=== PATIENT | male | born 1965 | race Caucasian/White ===

== ENCOUNTER 2018-10-30 19:06 | Emergency (ER) | payer MEDICARE, OTHER ==
[~2018-10-30] VITALS: Ht 190.5 cm; Wt 140.6 kg
[~2018-10-30 19:06] MED LIST: ACET325 PO; CYCL10 PO; HYDMOR2 PO; METPRE4DP PO; OXYACE5T PO; OXYC5 PO; SULTRIDS PO; TRAM50 PO
[2018-10-30] MEDS ORDERED: Hair, Skin & N1 EACH (19:36)
== END 2018-10-30 20:14 | disposition home or self-care (01) ==
LOC: ER 19:06
DX: S61.011A Laceration without foreign body of right thumb without damage to nail, initial encounter (principal); Z23 Encounter for immunization; F17.200 Nicotine dependence, unspecified, uncomplicated; W25.XXXA Contact with sharp glass, initial encounter; Z88.5 Allergy status to narcotic agent; Z88.8 Allergy status to other drugs, medicaments and biological substances
CPT/HCPCS: 12001; 90471; 90714; 99282-25

== ENCOUNTER 2020-09-02 12:35 | Emergency (ER) | payer MEDICARE ==
[~2020-09-02] VITALS: Ht 190.5 cm; Wt 147.4 kg
[~2020-09-02 12:35] MED LIST changes: +Hair, Skin & N1 EACH
[2020-09-02] MEDS ORDERED: OXYCODONE-ACET1 EAC3 PO (12:48)
[2020-09-02] MEDS ORDERED: ESCI10 PO (12:48)
[2020-09-02] MEDS ORDERED: ARIPIPRAZOLE2 M1 PO (12:48)
[2020-09-02] MEDS ORDERED: PERCOCET 10-321 EAC4 PO (14:33)
== END 2020-09-02 14:47 | disposition home or self-care (01) ==
LOC: ER 12:35
DX: S81.012A Laceration without foreign body, left knee, initial encounter (principal); S50.02XA Contusion of left elbow, initial encounter; M54.16 Radiculopathy, lumbar region; F17.200 Nicotine dependence, unspecified, uncomplicated; Z88.5 Allergy status to narcotic agent; Z88.8 Allergy status to other drugs, medicaments and biological substances; Z79.899 Other long term (current) drug therapy; W18.2XXA Fall in (into) shower or empty bathtub, initial encounter
CPT/HCPCS: 73080; 73564; 96372; 99283-25; J1885

== ENCOUNTER 2021-05-11 12:23 | Inpatient (IN) | payer MEDICARE ==
[~2021-05-11] VITALS: Ht 190.5 cm; Wt 161.2 kg
[~2021-05-11 12:23] MED LIST changes: +ARIPIPRAZOLE2 M1 PO; +ESCI10 PO; -Hair, Skin & N1 EACH; +OXYCODONE-ACET1 EAC3 PO; +PERCOCET 10-321 EAC4 PO
[2021-05-11] MEDS ORDERED: ABILIFY MYCITE5 M2 PO (13:30)
[2021-05-11] MEDS ORDERED: ESCI20 PO (13:31)
[2021-05-11 13:46] LABS: BASOPHILS ABSOLUTE AUTO 0.04 K/mm3 (0.00-0.23); BASOPHILS PERCENT AUTO 1 % (0-2); EOSINOPHILS ABSOLUTE AUTO 0.07 K/mm3 (0.00-0.68); EOSINOPHILS PERCENT AUTO 1 % (0-6); Hematocrit 47.3 % (37.0-53.0); Hemoglobin 15.2 g/dL (13.5-17.5); IMMATURE GRAN ABSOLUTE AUTO 0.02 K/mm3 (0.00-0.10); IMMATURE GRAN PERCENT AUTO 0 % (0-1); LYMPHOCYTES ABSOLUTE AUTO 1.68 K/mm3 (0.84-5.20); LYMPHOCYTES PERCENT AUTO 21 % (21-46); MONOCYTES ABSOLUTE AUTO 0.86 K/mm3 (0.16-1.47); MONOCYTES PERCENT AUTO 11 % (4-13); Mean Corpuscular HGB 31.7 pg (26.0-34.0); Mean Corpuscular HGB Conc 32.1 g/dL (31.5-36.5); Mean Corpuscular Volume 99 fL (80-100); Mean Platelet Volume 9.4 fL (9.1-12.4); NEUTROPHILS ABSOLUTE AUTO 5.47 K/mm3 (1.96-9.15); NEUTROPHILS PERCENT AUTO 67 % (41-73); Platelet Count 256 K/mm3 (150-400); RDW Coefficient Variation 12.9 % (11.7-14.2); RDW Standard Deviation 47.4 fL (35.1-46.3); White Blood Cell Count 8.14 K/mm3 (4.00-11.30)
[2021-05-11 14:10] LABS: Alanine Aminotransfer (ALT/SGP 23 U/L (12-78); Albumin, Blood 3.2 g/dL (3.4-5.0); Alk Phos 76 U/L (50-136); Anion Gap 2 mmol/L (6-16); Aspartate Aminotrans (AST/SGOT 20 U/L (12-37); Bilirubin, Total 0.6 mg/dL (0.1-1.0); Blood Urea Nitrogen 8 mg/dL (8-24); Bun/Creatinine Ratio 9.7 (12.0-20.0); CO2, Blood 35 mmol/L (21-32); Calcium, Blood 8.4 mg/dL (8.5-10.1); Chloride, Blood 98 mmol/L (98-108); Creatinine, Blood 0.83 mg/dL (0.60-1.20); Globulin, Blood 3.1 g/dL (2.2-4.0); Glomerular Filtration Rate >60 (60-); Glucose, Blood 101 mg/dL (70-99); Magnesium, Blood 2.3 mg/dL (1.6-2.4); Potassium, Blood 4.5 mmol/L (3.5-5.5); Sodium, Blood 135 mmol/L (136-145); Total Protein, Blood 6.3 g/dL (6.4-8.2); Troponin I <0.015 ng/mL (0.000-0.040)
[2021-05-11] MEDS ORDERED: Hair, Skin & N1 EACH PO (17:27)
[2021-05-11 21:54] LABS: CPK Creatine Kinase 50 U/L (39-308); Troponin I <0.015 ng/mL (0.000-0.040)
[2021-05-11 23:30] LABS: Source, Urine Clean Catch
[2021-05-11 23:31] LABS: Bilirubin, Urine Neg (Neg); Blood, Urine Neg (Neg); Glucose Qualitative, Urine Neg (Neg); Ketones, Urine Neg (Neg); Leukocyte Esterase, Urine Neg (Neg); Nitrite, Urine Neg (Neg); Protein, Urine Neg (Neg); Urobilinogen, Urine NORM (Normal)
[2021-05-11 23:34] LABS: Appearance, Urine Clear (Clear); Color, Urine Yellow (P-Yellow)
--- NOTE | 2021-05-12 05:17 | NUR ---
shift summary pt rested well through night. alert and oriented, able to make needs known. cooperative with plan of care. sats >90% on 5lnc. pt doesnt usually wear o2 at home, but has required 5lnc. covid negative. tele aflutter, rate ranging from 80's110's. does tend to jump up to 130's with activity. cardizem gtt running at 5mg/hr. denies chest pain or palpitations. trops negative. voids to urinal - ua sent, clear results, 700ml uop. no bm. stand by assist to bedside commode. no wounds or skin issues other than some noted swelling in ble. no c/o pain. vss. call light within reach, bed in lowest position. will continue to monitor.
[2021-05-12 05:31] LABS: BASOPHILS ABSOLUTE AUTO 0.03 K/mm3 (0.00-0.23); BASOPHILS PERCENT AUTO 1 % (0-2); EOSINOPHILS PERCENT AUTO 2 % (0-6); Hematocrit 48.8 % (37.0-53.0); Hemoglobin 15.7 g/dL (13.5-17.5); IMMATURE GRAN ABSOLUTE AUTO 0.02 K/mm3 (0.00-0.10); IMMATURE GRAN PERCENT AUTO 0 % (0-1); LYMPHOCYTES ABSOLUTE AUTO 1.36 K/mm3 (0.84-5.20); LYMPHOCYTES PERCENT AUTO 22 % (21-46); MONOCYTES ABSOLUTE AUTO 0.69 K/mm3 (0.16-1.47); MONOCYTES PERCENT AUTO 11 % (4-13); Mean Corpuscular HGB 32.1 pg (26.0-34.0); Mean Corpuscular HGB Conc 32.2 g/dL (31.5-36.5); Mean Corpuscular Volume 100 fL (80-100); Mean Platelet Volume 9.3 fL (9.1-12.4); NEUTROPHILS ABSOLUTE AUTO 4.02 K/mm3 (1.96-9.15); NEUTROPHILS PERCENT AUTO 65 % (41-73); Platelet Count 229 K/mm3 (150-400); RDW Standard Deviation 48.3 fL (35.1-46.3); Red Blood Cell Count 4.89 M/mm3 (4.30-5.90); White Blood Cell Count 6.22 K/mm3 (4.00-11.30)
[2021-05-12 06:00] LABS: Alanine Aminotransfer (ALT/SGP 24 U/L (12-78); Albumin, Blood 3.3 g/dL (3.4-5.0); Alk Phos 77 U/L (50-136); Anion Gap 0 mmol/L (6-16); Aspartate Aminotrans (AST/SGOT 20 U/L (12-37); Bilirubin, Total 0.7 mg/dL (0.1-1.0); Blood Urea Nitrogen 8 mg/dL (8-24); Bun/Creatinine Ratio 9.7 (12.0-20.0); CO2, Blood 37 mmol/L (21-32); CPK Creatine Kinase 41 U/L (39-308); Calcium, Blood 8.8 mg/dL (8.5-10.1); Chloride, Blood 97 mmol/L (98-108); Creatinine, Blood 0.83 mg/dL (0.60-1.20); Globulin, Blood 3.3 g/dL (2.2-4.0); Glomerular Filtration Rate >60 (60-); Glucose, Blood 109 mg/dL (70-99); Potassium, Blood 4.7 mmol/L (3.5-5.5); Sodium, Blood 134 mmol/L (136-145); Total Protein, Blood 6.6 g/dL (6.4-8.2); Troponin I <0.015 ng/mL (0.000-0.040)
--- NOTE | 2021-05-12 13:16 | NUR ---
Echocardiogram using 0.60ml of Definity contrast performed.
--- NOTE | 2021-05-12 18:33 | NUR ---
SHIFT SUMMARY PT IS ON A CARDIZEM DRIP AND HAS CONTINUED TO HAVE ELEVATED HEART RATE 90-110s, MEDS HAVE BEEN ADJUSTED PER EMAR. PT IS INDEPENDENT IN THE ROOM USING THE URINAL AT THE BEDSIDE. PT IS ALERT AND ORIENTED AND WAS ABLE TO VISIT WITH FAMILY TODAY. PT IS ON A FLUID RESTRICTION TODAY 1000ML/SHIFT. PT IS RESTING IN BED AT THIS TIME
[2021-05-13 05:12] LABS: Hematocrit 50.1 % (37.0-53.0); Hemoglobin 15.2 g/dL (13.5-17.5); Mean Corpuscular HGB 31.3 pg (26.0-34.0); Mean Corpuscular HGB Conc 30.3 g/dL (31.5-36.5); Mean Corpuscular Volume 103 fL (80-100); Mean Platelet Volume 9.3 fL (9.1-12.4); Platelet Count 202 K/mm3 (150-400); RDW Coefficient Variation 13.1 % (11.7-14.2); RDW Standard Deviation 50.7 fL (35.1-46.3); Red Blood Cell Count 4.86 M/mm3 (4.30-5.90); White Blood Cell Count 9.82 K/mm3 (4.00-11.30)
--- NOTE | 2021-05-13 05:29 | NUR ---
shift summary pt rested well thorugh the night. alert and oriented, able to make needs known. cooperative with plan of care. sats >90% on 5lnc. tele running aflutter - cardizem gtt running at 5mg/hr, rate at 90-100's. voiding to urinal. sba to commode. pain x1 for lower back and rle. vss. call light within reach, bed in lowest position. will continue to monitor.
[2021-05-13 05:48] LABS: Albumin, Blood 3.2 g/dL (3.4-5.0); Anion Gap 2 mmol/L (6-16); Blood Urea Nitrogen 7 mg/dL (8-24); Bun/Creatinine Ratio 8.8 (12.0-20.0); CO2, Blood 38 mmol/L (21-32); Calcium, Blood 8.4 mg/dL (8.5-10.1); Chloride, Blood 95 mmol/L (98-108); Creatinine, Blood 0.79 mg/dL (0.60-1.20); Glomerular Filtration Rate >60 (60-); Glucose, Blood 116 mg/dL (70-99); Phosphorus, Blood 5.4 mg/dL (2.5-4.9); Potassium, Blood 4.3 mmol/L (3.5-5.5); Sodium, Blood 135 mmol/L (136-145)
--- NOTE | 2021-05-13 17:16 | NUR ---
SHIFT SUMMARY PT IS A/O X4 AND COOPERATIVE. PT ABLE CALL APPROPIATELY. O2 SATS >92 THROUGH OUT SHIFT ON 5L NC. PT REMAINED IN A-FLUTTER IN THE 100-110'S. PT ON CARDIZEM DRIP AT 5MG/HR. PT ABLE TO STAND TO VOID VIA URINAL, TOLERATES WELL. PT REPORTED PAIN OF LOWER BACK TREATED PER EMAR. VSS THROUGHOUT SHIFT.
[2021-05-14 04:21] LABS: Hematocrit 46.9 % (37.0-53.0); Hemoglobin 14.5 g/dL (13.5-17.5); Mean Corpuscular HGB 31.5 pg (26.0-34.0); Mean Corpuscular HGB Conc 30.9 g/dL (31.5-36.5); Mean Corpuscular Volume 102 fL (80-100); Mean Platelet Volume 9.3 fL (9.1-12.4); Platelet Count 201 K/mm3 (150-400); RDW Coefficient Variation 12.9 % (11.7-14.2); RDW Standard Deviation 47.9 fL (35.1-46.3); Red Blood Cell Count 4.61 M/mm3 (4.30-5.90); White Blood Cell Count 7.06 K/mm3 (4.00-11.30)
[2021-05-14 04:37] LABS: Anion Gap 1 mmol/L (6-16); Blood Urea Nitrogen 7 mg/dL (8-24); Bun/Creatinine Ratio 8.8 (12.0-20.0); CO2, Blood 39 mmol/L (21-32); Calcium, Blood 8.8 mg/dL (8.5-10.1); Chloride, Blood 94 mmol/L (98-108); Glomerular Filtration Rate >60 (60-); Glucose, Blood 104 mg/dL (70-99); Phosphorus, Blood 3.7 mg/dL (2.5-4.9); Potassium, Blood 4.5 mmol/L (3.5-5.5); Sodium, Blood 134 mmol/L (136-145)
--- NOTE | 2021-05-14 06:21 | NUR ---
SHIFT SUMMARY NO ACUTE CHANGES THIS SHIFT. PT A&OX4. SP02>90% ON 5L NC. TELEEMTRY READS AFLUTTER. START OF SHIFT HR 120'S, CURRENT HR 80'S-90'S. CARDIZEM INFUSING AT 5. PT USED URINAL AT BEDSIDE. PT UNDER FLUID RESTRICTION THIS SHIFT. PT SLEPT MOST OF SHIFT. CALL LIGHT IN REACH. WILL GIVE REPORT TO ONCOMING NURSE.
--- NOTE | 2021-05-14 18:01 | NUR ---
SHIFT SUMMARY; ASSUMED CARE AT 0700. CARDIZEM DRIP AT 5 WHEN ASSUMING CARE. A/A/OX4 DURING SHIFT. REPOSITIONS SELF NEEDED. SHOWER TODAY. CARDIZEM DC'D FOR HR SUSTAINING 80-100. MEDICATED WITH PO MEDS PER EMAR. SPOUSE AT BEDSIDE IN AFTERNOON. NO ACUTE MEDICAL CHANGES, WILL CONTINUE TO MONITOR AND TREAT UNTIL CHANGE OF SHIFT.
--- NOTE | 2021-05-15 01:00 | NUR ---
PT REPORTING 9/10 LOW BACK PAIN THAT IS SHARP IN NATURE. MOVED PATIENT TO CHAIR WITH HEATING PAD. PATIENT REQUESTED PAIN MEDICATION, EXPLAINED WHAT WAS ORDERED AND THAT IF HE RECEIVED THAT DOSE NOW, [facility] WILL NOT HAVE THAT TO GIVE HIM LATER. PATIENT DECIDED TO RECEIVE IT NOW. UPON REASSESSMENT PATIENT WAS SLEEPING AND REPORTED PAIN TO BE A 7/10.
[2021-05-15 04:47] LABS: Anion Gap 1 mmol/L (6-16); Blood Urea Nitrogen 8 mg/dL (8-24); Bun/Creatinine Ratio 11.9 (12.0-20.0); CO2, Blood 41 mmol/L (21-32); Calcium, Blood 9.1 mg/dL (8.5-10.1); Chloride, Blood 92 mmol/L (98-108); Creatinine, Blood 0.67 mg/dL (0.60-1.20); Glomerular Filtration Rate >60 (60-); Glucose, Blood 96 mg/dL (70-99); Phosphorus, Blood 4.5 mg/dL (2.5-4.9); Potassium, Blood 4.3 mmol/L (3.5-5.5); Sodium, Blood 134 mmol/L (136-145)
--- NOTE | 2021-05-15 05:08 | NUR ---
ASSUMED CARE OF PATIENT AT 1900, PATIENT WAS RESTING WITH HIS EYES CLOSED AND SNORING. PATIENT MAINTAINING 94% ON 5L NC. PATIENT HR IS AVERAGING 86 AND CONTINUES TO BE IN ATRIAL FLUTTER. 2+ PITTING EDEMA BLE. LOW BACK PAIN (SEE PREVIOUS NOTE). PATIENT HAS BEEN SLEEPING MOST OF THE NIGHT. BED IN LOW POSITION, CALL LIGHT REMAINS WITHIN REACH.
--- NOTE | 2021-05-15 18:09 | NUR ---
SHIFT SUMMARY; ASSUMED CARE AT 0700, REPORT FROM KANIKA BARTHOLOMEW. A/A/OX4 THROUGHOUT SHIFT. O2 VIA NC AT 4L TO MAINTAIN SATS OF 92%. L/S COARSE T/O. REMAINS IN A FLUTTER WITH HR 100-115. DENIES CHEST PAIN. STATUS CHANGED TO MEDICAL TODAY. WILL CONTINUE TO MONITOR AND TREAT UNTIL CHANGE OF SHIFT.
[2021-05-16 04:25] LABS: Albumin, Blood 2.8 g/dL (3.4-5.0); Anion Gap 2 mmol/L (6-16); Blood Urea Nitrogen 10 mg/dL (8-24); Bun/Creatinine Ratio 13.5 (12.0-20.0); CO2, Blood 41 mmol/L (21-32); Calcium, Blood 8.6 mg/dL (8.5-10.1); Chloride, Blood 92 mmol/L (98-108); Creatinine, Blood 0.74 mg/dL (0.60-1.20); Glomerular Filtration Rate >60 (60-); Glucose, Blood 88 mg/dL (70-99); Phosphorus, Blood 4.3 mg/dL (2.5-4.9); Potassium, Blood 4.2 mmol/L (3.5-5.5); Sodium, Blood 135 mmol/L (136-145)
--- NOTE | 2021-05-16 04:55 | NUR ---
ASSUMED CARE OF PATIENT AT 1900, PATIENT AWAKE SITTING IN BED WATCHING TV. PATIENT HAD A 9/ PAIN IN LOW BACK, MEDICATED WITH PRN OXYCODONE, REASSESSMENT WAS A /. ATTEMPTED TO TITRATE O2 TO 3L NC, PATIENT BEGAN SATTING IN THE 80'S. RESUMED 4L NC AND PATIENT HAS BEEN STAYING AROUND 94%. PATIENT RESTED MOST OF THE NIGHT. CALL LIGHT REMAINS WITHIN REACH AND BED IN LOW POSITION.
--- NOTE | 2021-05-16 17:48 | NUR ---
SHIFT SUMMARY; ASSUMED CARE AT 0700. A/A/OX4 DURING SHIFT. INDEPENDANT IN ROOM. VSS, HR 90'S AFLUTTER. BED BATH COMPLETE TODAY. SPOUSE AT BEDSIDE IN AFTERNOON. MED TELE STATUS. NO ACUTE MEDICAL CHANGES DURING SHIFT. WILL CONTINUE TO MONITOR AND TREAT UNTIL CHANGE OF SHIFT.
[2021-05-17 04:21] LABS: Albumin, Blood 3.1 g/dL (3.4-5.0); Anion Gap 0 mmol/L (6-16); Blood Urea Nitrogen 8 mg/dL (8-24); Bun/Creatinine Ratio 9.8 (12.0-20.0); CO2, Blood 44 mmol/L (21-32); Calcium, Blood 8.7 mg/dL (8.5-10.1); Chloride, Blood 90 mmol/L (98-108); Creatinine, Blood 0.81 mg/dL (0.60-1.20); Glomerular Filtration Rate >60 (60-); Glucose, Blood 94 mg/dL (70-99); Phosphorus, Blood 4.7 mg/dL (2.5-4.9); Sodium, Blood 134 mmol/L (136-145)
--- NOTE | 2021-05-17 06:19 | NUR ---
ASSUMED CARE OF THE PATIENT at 1900. CRACKLES THROUGHOUT LUNGS WITH A WET/NON-PRODUCTIVE COUGH. ATRIAL FLUTTER WITH AN AVERAGE OF 114. 1+ PITTING EDEMA. PATIENT HAD 9/10 PAIN IN LOW BACK LAST NIGHT, MEDICATED WITH 2 OXYCODONE PRN AND WAS ABLE TO GET THE PAIN DOWN TO A 5/10. ATTEMPTED TO WEAN O2 (4L), BUT PATIENT WOULD DESAT. PLAN IS A HOME 02 EVAL SO THAT PATIENT CAN BE DC. PATIENT C/O STUFFY NOSE, APPLIED HUMIDITY TO EXISTING NC. PATIENT SLEPT MOST OF THE NIGHT.
--- NOTE | 2021-05-17 17:59 | NUR ---
SHIFT SUMMARY PT A&Ox4; CALM AND COOPERATIVE WITH CARE. PT RESTING IN BED, UP IND IN ROOM. USING URINAL AT BEDSIDE. PT REPORTS CHRONIC BACK PAIN, MEDCIATED x2 WITH PERCOCET, WITH POSITIVE RESULTS. PT SOB WITH EXERTION, ON 4L O2 VIA NC T/O SHIFT. PT DENIES DIZZINESS, LIGHTHEADEDNESS, AND NAUSEA. PT HR 90-110'S FOR MAJORITY OF SHIFT, OCCAIONALLY 120'S. OTHER VSS. NO OTHER ACUTE CHANGES NOTED. REPORT GIVEN TO RN ASSUMING CARE OF PATIENT. PT BEING TRANSFERED TO ROOM 215.
--- NOTE | 2021-05-17 18:46 | NUR ---
PT TRANSFER FROM PCU RECIEVED PT REPORT VIA TELEPHONE BY KANIKA BARTHOLOMEW. PT TRANSFERED TO SURG UNIT WITH BELONGINGS IN BAG @ APPROX 1830. PT SETTLED INTO ROOM. PT VSS. PT PROVIDED CALL LIGHT, PHONE, AND URINAL. PT ORIENTATED TO ROOM. PT STATED COMFORT AND VERBALIZED UNDERSTANDING OF PLAN OF FLUID RESTRICTION, AND PLAN TO DC TOMARROW IF HR REMAINS STABLE.
--- NOTE | 2021-05-17 19:27 | NUR ---
PT ADMIT ASSESSMENT PT IS A&O X4. PT HAS EXPIRATORY WHEEZES BILATERALLY UPPER LOBES. PT DENIES CHEST PAIN, TIGHTNESS, OR SOB. PT REPORTS PAIN PT PROVIDED WARM BLANKET AND REPOSITIONED, WILL CONTINUE TO MEDICATE PER EMAR.
--- NOTE | 2021-05-18 04:48 | NUR ---
SHIFT SUMMARY: VSS, NO ACUTE CHANGES, TELEMETRY REPORT ATRIAL FLUTTER, NO CHANGES. PT REMAINS A/O X 4, PLEASANT/COOPERATIVE, APPEARS TO BE SLEEPING SOUNDLY/SNORING ON NURSE ROUNDING. PT DENIES N/V, IS VOIDING USING URINAL, IS TOLERATING PO INTAKE. LUNGS WITH EXPIRATORY WHEEZE.
[2021-05-18] MEDS ORDERED: Nicoderm Cq1 EAC1 TOP (12:54)
[2021-05-18] MEDS ORDERED: XARELTO20 MG PO (12:55)
[2021-05-18] MEDS ORDERED: FURO40 PO (12:55)
[2021-05-18] MEDS ORDERED: METO50 PO (12:56)
--- NOTE | 2021-05-18 15:19 | NUR ---
DISCHARGE PT A&0 X4. @ BEDSIDE DURING DISCHARGE DIRECTION. PT AND SPOUSE VERBALIZED UNDERSTANDING. PT PROVIDED BOTH VERBAL AND WRITTEN DIRECTION. PT TOLERATING ORAL INTAKE. PT VOIDING. PT MEDICATED PER EMAR FOR PAIN. PT REMOVED FROM TELE AND IV REMOVED. PT ESCORTED OUT VIA WC BY [place]OR[place] GUTIÉRREZ. SPOUSE PROVIDED TRANSPORT.
== END 2021-05-18 15:39 | disposition home or self-care (01) | DRG 291 ==
LOC: ER 12:23 → PCU 12:34 → ERHOLD 12:34 → PCU 20:56 → ERHOLD 20:56 → PCU 20:57 → ERHOLD 05-12 16:08 → PCU 05-12 16:08 → SURS 05-17 18:19
PROVIDERS: Family Medicine; Internal Medicine; Physician Assistant; ADMIT Internal Medicine
DX: I50.31 Acute diastolic (congestive) heart failure (principal); J96.01 Acute respiratory failure with hypoxia; Z68.41 Body mass index [BMI] 40.0-44.9, adult; E87.1 Hypo-osmolality and hyponatremia; I48.91 Unspecified atrial fibrillation; E66.01 Morbid (severe) obesity due to excess calories; F32.9 Major depressive disorder, single episode, unspecified; Z91.19 Patient's noncompliance with other medical treatment and regimen; G89.29 Other chronic pain; Z79.899 Other long term (current) drug therapy; Z88.8 Allergy status to other drugs, medicaments and biological substances; Z88.5 Allergy status to narcotic agent; F17.210 Nicotine dependence, cigarettes, uncomplicated; R19.7 Diarrhea, unspecified
CPT/HCPCS: 36415; 70491; 71045; 71046; 80053; 80069; 81003; 82550; 83735; 83880; 84443; 84484; 85025; 85027; 93005; 93010; 94660; 94761; 96365-59; 96366-59; 96375-59; 96376; 96376-59; 99285-25; A9270; C8929; G0378; J1940; Q9957; Q9967

== ENCOUNTER 2022-05-10 12:50 | Emergency (ER) | payer OTHER ==
[~2022-05-10] VITALS: Ht 190.5 cm; Wt 154.2 kg
[~2022-05-10 12:50] MED LIST changes: +ABILIFY MYCITE5 M2 PO; +ESCI20 PO; +FURO40 PO; +Hair, Skin & N1 EACH PO; +METO50 PO; +Nicoderm Cq1 EAC1 TOP; +XARELTO20 MG PO
[2022-05-10 15:03] LABS: BASOPHILS ABSOLUTE AUTO 0.06 K/mm3 (0.00-0.23); BASOPHILS PERCENT AUTO 1 % (0-2); EOSINOPHILS ABSOLUTE AUTO 0.05 K/mm3 (0.00-0.68); EOSINOPHILS PERCENT AUTO 1 % (0-6); Hematocrit 41.4 % (37.0-53.0); Hemoglobin 13.8 g/dL (13.5-17.5); IMMATURE GRAN ABSOLUTE AUTO 0.01 K/mm3 (0.00-0.10); IMMATURE GRAN PERCENT AUTO 0 % (0-1); LYMPHOCYTES ABSOLUTE AUTO 1.11 K/mm3 (0.84-5.20); LYMPHOCYTES PERCENT AUTO 13 % (21-46); MONOCYTES ABSOLUTE AUTO 1.29 K/mm3 (0.16-1.47); MONOCYTES PERCENT AUTO 15 % (4-13); Mean Corpuscular HGB 33.7 pg (26.0-34.0); Mean Corpuscular HGB Conc 33.3 g/dL (31.5-36.5); Mean Corpuscular Volume 101 fL (80-100); Mean Platelet Volume 9.3 fL (9.1-12.4); NEUTROPHILS ABSOLUTE AUTO 6.09 K/mm3 (1.96-9.15); NEUTROPHILS PERCENT AUTO 71 % (41-73); Platelet Count 244 K/mm3 (150-400); RDW Coefficient Variation 14.5 % (11.7-14.2); RDW Standard Deviation 53.6 fL (35.1-46.3); White Blood Cell Count 8.61 K/mm3 (4.00-11.30)
[2022-05-10 15:28] LABS: Albumin, Blood 3.3 g/dL (3.4-5.0); Bun/Creatinine Ratio 13.4 (12.0-20.0); Calcium, Blood 8.9 mg/dL (8.5-10.1); Creatinine, Blood 0.6 mg/dL (0.60-1.20); Globulin, Blood 3.4 g/dL (2.2-4.0); Potassium, Blood 4.2 mmol/L (3.5-5.5); Total Protein, Blood 6.7 g/dL (6.4-8.2)
[2022-05-10] MEDS ORDERED: Veetids 500500 MG PO (16:40)
== END 2022-05-10 17:02 | disposition home or self-care (01) ==
LOC: ER 12:50
PROVIDERS: Student in an Organized Health Care Education/Training Program
DX: K04.7 Periapical abscess without sinus (principal); F17.210 Nicotine dependence, cigarettes, uncomplicated; Z88.5 Allergy status to narcotic agent; Z88.8 Allergy status to other drugs, medicaments and biological substances; Z79.899 Other long term (current) drug therapy
CPT/HCPCS: 36415; 70491; 80053; 83605; 85025; A9270; J1885; Q9967

== ENCOUNTER 2023-07-05 11:05 | Day surgery (SDC) | payer OTHER ==
[~2023-07-05] VITALS: Ht 190.5 cm; Wt 156.8 kg
[~2023-07-05 11:05] MED LIST changes: +ANORO ELLIPTA1 EACH INH; +Aspir 8181 MG PO; +JARDIANCE10 MG PO; +METO100ER PO; +POTA10T PO; +Prozac20 MG PO; +Veetids 500500 MG PO; +Ventolin5 MG/1 ML INH
[2023-07-05] MEDS ORDERED: LOSA50 (11:37)
--- NOTE | 2023-07-05 13:45 | NUR ---
07/05/23 1345 Nory Fitzpatrick 1342 PT MEDICATED WITH FENTANYL 50MCG IVP PER ANESTHESIA ORDERS FOR BACK PAIN OF 05/11
[2023-07-05 17:15] VITALS: BP 118/82
== END 2023-07-05 16:08 | disposition home or self-care (01) ==
LOC: ORSCSDS 11:05
PROVIDERS: Internal Medicine Gastroenterology
PROC: 0DBP8ZX Excision of Rectum, Via Natural or Artificial Opening Endoscopic, Diagnostic (ICD-10-PCS; principal; 2023-07-05 11:45)
PROC: 0DBH8ZX Excision of Cecum, Via Natural or Artificial Opening Endoscopic, Diagnostic (ICD-10-PCS; principal; 2023-07-05 11:45)
PROC: 0DBE8ZX Excision of Large Intestine, Via Natural or Artificial Opening Endoscopic, Diagnostic (ICD-10-PCS; principal; 2023-07-05 11:45)
DX: R19.7 Diarrhea, unspecified (principal); R10.9 Unspecified abdominal pain; D12.0 Benign neoplasm of cecum; D12.8 Benign neoplasm of rectum; K62.1 Rectal polyp; K57.30 Diverticulosis of large intestine without perforation or abscess without bleeding; G47.33 Obstructive sleep apnea (adult) (pediatric); I50.9 Heart failure, unspecified; Z79.899 Other long term (current) drug therapy; E66.01 Morbid (severe) obesity due to excess calories; Z68.41 Body mass index [BMI] 40.0-44.9, adult
CPT/HCPCS: 88305; J2704; J3010; J7120

== ENCOUNTER 2023-09-29 06:38 | Day surgery (SDC) | payer OTHER ==
[~2023-09-29] VITALS: Ht 190.5 cm; Wt 159.0 kg
[~2023-09-29 06:38] MED LIST changes: +ANORO ELLIPTA1 EAC1 IH; +LOSA50; +SPIRONOLACTONE50 MG PO
[2023-09-29 07:00] VITALS: BP 145/87
[2023-09-29 07:20] VITALS: BP 124/80
[2023-09-29 07:25] VITALS: BP 112/82
--- NOTE | 2023-09-29 07:25 | NUR ---
PT AWAKE AND VERBALIZING WELL POST CARDIOVERSION. PT AFIB 85-95BPM POST CARDIOVERSION X3. PT AND VERBALIZED UNDERSTANDING OF WRITTEN AND VERBAL D/C INST. IV REMOVED.
[2023-09-29 07:30] VITALS: BP 137/86
== END 2023-09-29 22:35 | disposition home or self-care (01) ==
LOC: MHTC 06:38
DX: I48.19 Other persistent atrial fibrillation (principal); I11.0 Hypertensive heart disease with heart failure; I50.32 Chronic diastolic (congestive) heart failure; G47.33 Obstructive sleep apnea (adult) (pediatric); J96.10 Chronic respiratory failure, unspecified whether with hypoxia or hypercapnia; I42.9 Cardiomyopathy, unspecified; Z79.899 Other long term (current) drug therapy; Z88.8 Allergy status to other drugs, medicaments and biological substances
CPT/HCPCS: 92960; J2704; J7030